=== PATIENT | male | born 1975 | race Caucasian/White ===

== ENCOUNTER 2022-12-04 21:57 | Emergency (ER) | payer SELFPAY ==
[~2022-12-04] VITALS: Ht 170.2 cm; Wt 108.9 kg
[2022-12-04 22:04] VITALS: BP_SYST 142
[2022-12-04 22:24] VITALS: BP_SYST 132
--- NOTE | 2022-12-04 22:30 | NUR ---
PATIENT BROUGHT IN COMPLAINING OF CHEST PAIN SINCE 1940 WITH DULL INTERMITTENT PAIN TO THE LEFT JAW. PAIN 4/10. PATIENT REPORTS CHEST PAIN HAS RESOLVED. DENIES ANY SOB
[2022-12-04] MEDS ORDERED: VIS25 PO (22:35)
--- NOTE | 2022-12-04 22:36 | NUR ---
ER Dr. JOHNSON examining patienT [facility]
--- NOTE | 2022-12-04 22:44 | NUR ---
Patient given written and verbal discharge instructions and verbalizes understanding. ER MD discussed with patient the results and treatment provided. Patient in stable condition. ID arm band removed. IV catheter removed intact and dressing applied, no active bleeding. Rx of VISTARIL given. Patient educated on pain management and to follow up with PMD. Pain Scale 0/10 Opportunity for questions provided and answered. Medication side effect fact sheet provided.
== END 2022-12-04 22:44 | disposition home or self-care (01) ==
LOC: SED 21:57
DX: R07.89 Other chest pain (principal); R68.84 Jaw pain; F41.9 Anxiety disorder, unspecified; Z79.899 Other long term (current) drug therapy
CPT/HCPCS: 93005; 99283